=== PATIENT | female | born 1935 | race Caucasian/White ===

== ENCOUNTER 2020-03-15 08:37 | Inpatient (IN) | payer OTHER, MEDICARE, BC ==
--- NOTE | 2020-03-20 19:10 | PCM.DCSUM1 ---
Discharge Summary - Hospital Course HPI Initial Comments: This patient is on Respite care, hospice. Patient is palliatve care, I will swing this patient today. Patient nonverbal, no complaints. - Discharge Data Discharge Date: 03/20/20 Discharge Disposition: DC/Tfer W/I Hosp To Swing 61 Condition: Good - Referral to Home Health Primary Care Physician: Wayne Navas MD - Patient Instructions Diet: NPO - Discharge Plan *PRESCRIPTION DRUG MONITORING PROGRAM REVIEWED*: Not Applicable *COPY OF PRESCRIPTION DRUG MONITORING REPORT IN PATIENT DEBORA: Not Applicable - Discharge Summary/Plan Comment DC Time >30 min.: No - General Info Date of Service: 03/20/20 Functional Status: Reports: Pain Controlled - Review of Systems General: Reports: No Symptoms - Patient Data Vitals - Most Recent: Last Vital Signs Temp 97.5 F 03/15/20 08:40 Pulse 86 03/15/20 08:40 Resp 20 03/15/20 08:40 BP 110/58 L 03/15/20 08:40 Pulse Ox 99 03/15/20 08:40 Weight - Most Recent: 152 lb 1.6 oz Med Orders - Current: Current Medications Discontinued Medications Senna/Docusate Sodium (Senna Plus) 1 tab PO BID ANTOINETTE Last Admin: 03/15/20 16:23 Dose: Not Given Documented by: - Exam General: Reports: Other (nonverbal) Lungs: Reports: Normal Respiratory Effort, Rhonchi Cardiovascular: Reports: Regular Rate, Regular Rhythm Back Exam: Reports: Normal Inspection Extremities: Normal Inspection, No Pedal Edema Skin: Reports: Warm, Dry, Intact
== END 2020-03-20 20:12 | disposition swing bed (61) | DRG 951 ==
LOC: CC.MS 08:37
PROVIDERS: ADMIT Family Medicine; ATTEND Family Medicine
DX: Z51.5 Encounter for palliative care (principal); Z75.5 Holiday relief care
CPT/HCPCS: 51702

== ENCOUNTER 2020-03-20 11:21 | Inpatient (IN) | payer BC, MEDICARE ==
[2020-03-20] MEDS ORDERED: LORAZEPAM 2 MG/ML PO PRN (20:29)
[2020-03-20] MEDS ORDERED: MORPHINE 20 MG/ML PO PRN (20:29)
[2020-03-20] MEDS ORDERED: HYOSCYAMINE 0.125 MG SL PRN (20:29)
[2020-03-20] MEDS ORDERED: MORPHINE 20 MG/ML PO SCH (21:00)
--- NOTE | 2020-03-21 00:01 | PCM.DCSUM1 ---
Discharge Summary - Hospital Course HPI Initial Comments: Patient : Time of : 2256. - Discharge Data Discharge Date: 03/20/20 Discharge Disposition: 20 Preliminary Cause of *Q: Cardiac Arrest Condition: Good - Referral to Home Health Primary Care Physician: Wayne Navas MD - Discharge Plan *PRESCRIPTION DRUG MONITORING PROGRAM REVIEWED*: Not Applicable *COPY OF PRESCRIPTION DRUG MONITORING REPORT IN PATIENT DEBORA: Not Applicable Home Medications: Home Meds Hyoscyamine [Hyomax-SL] 1 tab SL Q4H PRN 03/20/20 [History] LORazepam [Ativan] 0.5 - 1 mg PO Q4H PRN 03/20/20 [History] LORazepam [Ativan] 1 mg PO TID 03/20/20 [History] Morphine [Morphine 20 MG/ML Soln] 5 mg PO Q30M PRN 03/20/20 [History] Morphine [Morphine 20 MG/ML Soln] 5 mg PO Q4H 03/20/20 [History] - Discharge Summary/Plan Comment DC Time >30 min.: No - General Info Date of Service: 03/21/20 Subjective Update: Patient - Patient Data Weight - Most Recent: 140 lb 12.8 oz Med Orders - Current: Current Medications Hyoscyamine (Hyomax-Sl) 0.125 mg SL Q4H PRN PRN Reason: Congestion Lorazepam (Ativan) 0.5 - 1 mg PO Q4H PRN PRN Reason: Agitation Lorazepam (Ativan) 1 mg PO TID ANTOINETTE Morphine Sulfate (Morphine 20 Mg/Ml Soln) 5 mg PO Q30M PRN PRN Reason: Pain Morphine Sulfate (Morphine 20 Mg/Ml Soln) 5 mg PO Q4H [facility] Last Admin: 03/20/20 21:50 Dose: Not Given Documented by: - Exam General: Reports: Other (Patient ) Cardiovascular: Reports: Other (Asystole)
[2020-03-21] MEDS ORDERED: LORAZEPAM 2 MG/ML PO SCH (08:00)
== END 2020-03-20 22:57 | disposition expired | DRG 951 ==
LOC: CC.MS 20:00
PROVIDERS: ADMIT Family Medicine; ATTEND Family Medicine
DX: Z51.5 Encounter for palliative care (principal); I21.4 Non-ST elevation (NSTEMI) myocardial infarction; I26.99 Other pulmonary embolism without acute cor pulmonale; J84.9 Interstitial pulmonary disease, unspecified; C34.32 Malignant neoplasm of lower lobe, left bronchus or lung; I46.9 Cardiac arrest, cause unspecified; Z75.5 Holiday relief care; I12.9 Hypertensive chronic kidney disease with stage 1 through stage 4 chronic kidney disease, or unspecified chronic kidney disease; I25.2 Old myocardial infarction; N18.3 Chronic kidney disease, stage 3 (moderate); I25.10 Atherosclerotic heart disease of native coronary artery without angina pectoris; I27.20 Pulmonary hypertension, unspecified; Z79.899 Other long term (current) drug therapy; Z99.81 Dependence on supplemental oxygen